=== PATIENT | male | born 1960 | race Caucasian/White ===

== ENCOUNTER 2016-09-29 00:56 | Emergency (ER) | payer OTHER ==
[2016-09-29 01:10] VITALS: PULSE 62; TEMP 98.2; BMI 23.0
[2016-09-29] MEDS ORDERED: KETOROLAC TROMETHAMINE 30 MG/1 ML VIAL IVPUSH ONE (01:18)
[2016-09-29] MEDS ORDERED: KETOROLAC TROMETHAMINE 30 MG/1 ML VIAL IM ONE (01:18)
[2016-09-29] MEDS ORDERED: METHOCARBAMOL 500 MG TABLET PO ONE (01:19)
[2016-09-29] MEDS ORDERED: METHOCARBAMOL 500 MG TABLET ONE (01:36)
[2016-09-29] MEDS ORDERED: KETOROLAC TROMETHAMINE 60 MG/2 ML VIAL ONE (01:36)
--- NOTE | 2016-09-29 01:37 | PDOC ---
History of Present Illness <Kait Cruz - Last Filed: 09/29/16 02:46> - History of Present Illness Initial Comments: 09/29/16 01:22 Patient is a 56 year old with a history of chronic back pain who presents with back and chest pain. The patient reports that he was lifting heavy luggage and moving furniture around earlier today and began having right sided back and chest pain that he describes as a 4/10 sharp pain prompting his visit to the ED today. He states that he took 1 percocet with some relief that he has prescribed for his chronic back pain to help this new pain he was experiencing. He denies any SOB, nausea, vomiting, fevers, chills, abdominal pain, or other complaints. <Collin Rubalcava - Last Filed: 09/29/16 02:57> - General Chief Complaint: Back Pain Stated Complaint: BACK PAIN Time Seen by Provider: 09/29/16 01:00 Past History <Kait Cruz - Last Filed: 09/29/16 02:46> - Past Medical History Hypercholesterolemia: Yes Other medical history: back pain - Psycho/Social/Smoking Cessation Hx Suicidal Ideation: No Smoking History: Never smoked Have you smoked in the past 12 months: No Information on smoking cessation initiated: No Hx Alcohol Use: No Drug/Substance Use Hx: No <Collin Rubalcava - Last Filed: 09/29/16 02:57> - Past Medical History Allergies/Adverse Reactions: Allergies Allergy/AdvReac Type Severity Reaction Status Date / Time No Known Allergies Allergy Verified 09/29/16 01:23 Home Medications: Ambulatory Orders Gabapentin 600 mg PO BID 09/29/16 Methocarbamol [Robaxin -] 500 mg PO TID #30 tablet 09/29/16 Oxycodone HCl/Acetaminophen [Percocet 10-325 mg Tablet] 1 each PO PRN 09/29/16 Simvastatin 40 mg PO HS 09/29/16 Review of Systems - Review of Systems Constitutional: No: Chills, Fever HEENTM: No: Recent change in vision Respiratory: No: Cough, Shortness of Breath Cardiac (ROS): Yes: Chest Pain. No: Palpitations ABD/GI: No: Constipated, Diarrhea, Nausea, Vomiting : No: Burning, Dysuria Musculoskeletal: Yes: Back Pain, Muscle Pain Integumentary: No: Rash Neurological: No: Headache, Numbness, Tingling, Weakness <Collin Rubalcava - Last Filed: 09/29/16 02:57> *Physical Exam - Vital Signs Last Vital Signs Temp Pulse Resp BP Pulse Ox 98.2 F 62 20 132/90 100 09/29/16 00:59 09/29/16 00:59 09/29/16 00:59 09/29/16 00:59 09/29/16 00:59 <Kait Cruz - Last Filed: 09/29/16 02:46> - Vital Signs Last Vital Signs Temp Pulse Resp BP Pulse Ox 98.2 F 62 20 132/90 100 09/29/16 00:59 09/29/16 00:59 09/29/16 00:59 09/29/16 00:59 09/29/16 00:59 - Physical Exam Comments: 09/29/16 01:44 General Appearance: Nourished. No Apparent Distress HEENT: No Pharyngeal Erythema, Tonsillar Exudate, Tonsillar Erythema Respiratory/Chest: Lungs Clear, Normal Breath Sounds. No Crackles, Rales, Rhonchi, Wheezing Cardiovascular: Regular Rhythm, Regular Rate. No Murmur, Gallop/S3, Gallop/S4 Gastrointestinal/Abdominal: Normal Bowel Sounds, Soft. 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 intact, Fully Oriented, Alert, Normal Mood/Affect, Normal Response Deep Tendon Reflexes: Ankle (L): 2+, Ankle (R): 2+, Knee (L): 2+, Knee (R): 2+, Bicep (L): 2+, Bicep (R): 2+, Tricep (L): 2+, Tricep (R): 2+ <Collin Rubalcava - Last Filed: 09/29/16 02:57> ED Treatment Course - LABORATORY CBC & Chemistry Diagram: 09/29/16 02:05 09/29/16 02:05 - ADDITIONAL ORDERS Additional order review: Laboratory Results 09/29/16 09/29/16 02:05 02:05 Creatine Kinase 204 CK-MB (CK-2) Rel Index Cancelled Troponin I 0.03 09/29/16 02:05 RBC 5.10 MCV 86.4 MCHC 33.1 RDW 13.6 MPV 8.7 Neutrophils % 82.3 Lymphocytes % 10.8 Monocytes % 5.5 Eosinophils % 0.9 Basophils % 0.5 - RADIOLOGY Radiology Studies Ordered: Category Date Time Status CHEST PA & LAT [RAD] Stat Radiology 09/29/16 01:20 Taken - Medications Given in the ED: ED Medications Discontinued Medications Generic Name Dose Route Start Last Admin Trade Name Chintan PRN Reason Stop Dose Admin Ketorolac Tromethamine 30 mg 09/29/16 01:18 09/29/16 01:56 Toradol Injection - IVPUSH 09/29/16 01:19 Not Given ONCE ONE Ketorolac Tromethamine 60 mg 09/29/16 01:18 09/29/16 01:42 Toradol Injection - IM 09/29/16 01:19 60 mg ONCE ONE Administration Methocarbamol 1,000 mg 09/29/16 01:19 09/29/16 01:42 Robaxin - PO 09/29/16 01:20 1,000 mg ONCE ONE Administration <Kait Cruz - Last Filed: 09/29/16 02:46> - LABORATORY CBC & Chemistry Diagram: 09/29/16 02:05 09/29/16 02:05 <Collin Rubalcava - Last Filed: 09/29/16 02:57> Medical Decision Making - Medical Decision Making 09/29/16 01:45 Patient is a 56 male with a history of chronic back pain who presents with back and chest pain after heavy lifting during the day. Given the patient's history and benign physical exam, his symptoms are most consistent with musculoskeletal strain. We will treat with toradol and robaxin and obtain a chest radiograph, ekg, cbc, cmp, troponin and reevaluate. 09/29/16 02:54 Patient is improved and work up has been negative and unremarkable. The patient 's pain is most likely due to musculoskeletal strain from his heavy lifting today. We discussed the results with the patient and feel comfortable discharging the patient home. The patient is agreeable to the plan. <Collin Rubalcava - Last Filed: 09/29/16 02:57> *DC/Admit/Observation/Transfer - Discharge Dispostion Admit: No <Kait Cruz - Last Filed: 09/29/16 02:46> - Attestations Physician Attestion: 09/29/16 02:53 I, Dr. Collin Rubalcava, attest that this document has been prepared under my direction and personally reviewed by me in its entirety. I further attest, that it accurately reflects all work, treatment, procedures and medical decision -making performed by me. <Collin Rubalcava - Last Filed: 09/29/16 02:57> Diagnosis at time of Disposition: Muscle spasm, Musculoskeletal chest pain - Discharge Dispostion Disposition: HOME Condition at time of disposition: Improved - Prescriptions Prescriptions: Methocarbamol [Robaxin -] 500 mg PO TID #30 tablet - Patient Instructions Printed Discharge Instructions: DI for Musculoskeletal Pain Additional Instructions: Please return to the ER if you experience concerning or worsening symptoms. Please follow up with your primary care provider to discuss your ER visit.
[2016-09-29 02:15] LABS: BASOPHIL 0.5 % (0-2.0); EOSINOPHIL 0.9 % (0-4.5); MCH 28.6 pg (25.7-33.7); MCHC 33.1 g/dl (32.0-35.9); MEAN CELL VOLUME 86.4 fl (80-96); MEAN PLT VOLUME 8.7 fl (7.5-11.1); NEUTROPHILS 82.3 % (42.8-82.8); PLATELET COUNT 193 K/MM3 (134-434); RDW 13.6 % (11.9-15.9); WHITE BLOOD COUNT 12.5 K/mm3 (4.0-10.0)
[2016-09-29 02:38] LABS: TROPONIN I 0.03 ng/ml (0.00-0.05)
[2016-09-29 02:46] LABS: ALK PHOS 73 U/L (45-117); ANION GAP 8 (8-16); BILIRUBIN,TOTAL 1.2 mg/dL (0.2-1.0); CALCIUM 8.9 mg/dL (8.5-10.1); CO2 28 mmol/L (21-32); CREATININE 0.9 mg/dL (0.7-1.3); GLUCOSE,RANDOM 145 mg/dL (74-106); SGOT/AST 24 U/L (15-37); SGPT/ALT 38 U/L (12-78); TOT PROT 6.7 g/dl (6.4-8.2)
[2016-09-29 03:11] VITALS: BP 123/78
--- NOTE | 2016-09-30 09:15 | EKG ---
Test Reason : Blood Pressure : / mmHG Vent. Rate : 061 BPM Atrial Rate : 061 BPM P-R Int : 132 ms QRS Dur : 090 ms QT Int : 400 ms P-R-T Axes : 057 041 -03 degrees QTc Int : 402 ms POOR DATA QUALITY, INTERPRETATION MAY BE ADVERSELY AFFECTED SINUS RHYTHM WITH PREMATURE ATRIAL COMPLEXES POSSIBLE INFERIOR INFARCT , AGE UNDETERMINED ABNORMAL ECG NO PREVIOUS ECGS AVAILABLE Confirmed by BHAVNA BERMUDEZ, CADE ([id number]) on 09/30/2016 9:15:06 AM Referred By: Confirmed By:CADE HUGGINS MD
== END 2016-09-29 03:12 | disposition home or self-care (01) ==
LOC: JER 00:56
PROC: 3E0233Z Introduction of Anti-inflammatory into Muscle, Percutaneous Approach (ICD-10-PCS; principal; 2016-09-29)
DX: S39.012A Strain of muscle, fascia and tendon of lower back, initial encounter (principal); S29.011A Strain of muscle and tendon of front wall of thorax, initial encounter; X50.0XXA Overexertion from strenuous movement or load, initial encounter; X50.9XXA Other and unspecified overexertion or strenuous movements or postures, initial encounter; Y93.E9 Activity, other interior property and clothing maintenance; Y92.098 Other place in other non-institutional residence as the place of occurrence of the external cause
CPT/HCPCS: 36415; 71020-TC; 80053; 82550; 82553; 84484; 85025; 93005; 93010; 96372; 99281-25